=== PATIENT | female | born 1950 | race Caucasian/White ===

== ENCOUNTER 2019-03-09 18:39 | Emergency (ER) | payer MEDICARE, OTHER ==
[2019-03-09] MEDS ORDERED: HYDROmorphone 0.5 MG/0.5 ML Syringe IM ONE (19:08)
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
[2019-03-09] MEDS ORDERED: Baclofen 10 MG Tab PO ONE (20:33)
[2019-03-09] MEDS ORDERED: Acetaminophen/HYDROcodone 325-5 MG Tab PO ONE (20:33)
== END 2019-03-09 21:09 | disposition home or self-care (01) ==
LOC: JP.ED 18:39
DX: M21.862 Other specified acquired deformities of left lower leg (principal); Z88.0 Allergy status to penicillin; Z96.651 Presence of right artificial knee joint; W18.39XA Other fall on same level, initial encounter; Y93.53 Activity, golf
CPT/HCPCS: 73564; 73590; 73610; 96372; 99283; A9270; J1170